=== PATIENT | female | born 1960 | race Two or more races ===

== ENCOUNTER 2024-08-13 16:05 | Emergency (ER) | payer OTHER, SELFPAY ==
[2024-08-13 16:13] VITALS: BP 120/87; PULSE 105; RESP 16; TEMP 36.8; O2SAT 96; BMI 32.9
--- NOTE | 2024-08-13 16:36 | EDNOTE_ITS ---
Upper Extremity Injury RME/HPI General Chief Complaint: Extremity Injury, Upper Stated Complaint: INJURY TO LEFT SHOULDER YEST. SENT FOR CT Time Seen by Provider: 08/13/24 16:17 Arrival date/time: 08/13/24 16:05 RME / HPI RME / HPI narrative: 63-year-old female patient came in for evaluation regarding left shoulder pain. Patient was in the shower accidentally lost balance and hit her shoulder on the wall. Patient is now complaining of pain to the left shoulder worse with range of motion of the shoulder. Went to PCP, x-ray was done, and was interpreted for possible CT scan to rule out fracture of the shoulder head. Related Data Previous Rx's ?Medication ?Instructions ?Recorded oxycodone 5 mg/5 mL oral solution 5 mg (5 mL) PO Q6HR PRN pain #100 06/18/18 mL apixaban 2.5 mg tablet (Eliquis) 2.5 mg PO BID #28 tabs 06/20/18 Allergies Allergy/AdvReac Type Severity Reaction Status Date / Time No Known Allergies Allergy Verified 08/13/24 16:08 Review of Systems Review of Systems Narrative Review of Systems: Review of system reviewed and within normal limits except mentioned in HPI ED Exam Narrative Physical exam: VITAL SIGNS: Reviewed. GENERAL APPEARANCE: Alert and interactive, follows commands, no acute distress, HEAD AND FACE: Non-traumatic. ENT: PERRL, pink conjunctivitis, eyelid no trauma, Mucous membrane moist. NECK: Supple, nontender, no nuchal rigidity. CHEST: No tenderness, no crepitus, no paradoxical movement, no retractions. RECTAL: Deferred. GENITAL: Deferred. NEUROLOGICAL: Gross motor function intact sensory function intact, Appropriate for age. MUSCULOSKELETAL: low back nontender, full range of motion. EXTREMITIES:left anterior shoulder tenderness, no bruising, limited range of motion. SKIN: Color pink, dry, no rash, no lacerations, no abrasions, no contusions. LYMPHATICS: Deferred. Course Quality Measures none Vital Signs Vital signs: Vital Signs Temperature 98.2 F 08/13/24 16:13 Pulse Rate 105 H 08/13/24 16:13 Respiratory Rate 16 08/13/24 16:13 Blood Pressure 120/87 H 08/13/24 16:13 Pulse Oximetry (%) 96 08/13/24 16:13 Oxygen Delivery Method Room Air 08/13/24 16:13 Extremity Injury MDM Narrative MDM Narrative:: 63-year-old female patient came in for evaluation regarding left shoulder pain. Patient was in the shower accidentally lost balance and hit her shoulder on the wall. Patient is now complaining of pain to the left shoulder worse with range of motion of the shoulder. Went to PCP, x-ray was done, and was interpreted for possible CT scan to rule out fracture of the shoulder head. Patient was placed on a sling. Patient was advised to closely follow-up with orthopedic surgeon, Dr. Franz, next week. Patient agrees with the plan Patient data External records reviewed:: None Clinical information provided by:: none Social determinants that could affect healthcare access:: none Patient has the following chronic illnesses:: None How is presenting disease/condition affected by chronic disease/condition?: no chronic disease Evaluation data The following diagnostics were reviewed and interpreted by me:: radiology exam(s) Lab and/or radiology exams considered but not ordered:: None Interpretation Summary: I reviewed patient's x-ray and showed nondisplaced chip fracture of the lateral aspect of the humeral head results discussed with the patient. Medications / Prescriptions Medications or Prescriptions considered but not ordered:: None none Medication administrations:: None Consultations Consultation(s) initiated? (list below): No Diagnosis Upper Extremity Injury Differential Diagnosis: dislocation of shoulder, fracture of humerus and other (Chip fracture of the humeral head) Most likely diagnosis given after review of the tests above:: Chip fracture of the humeral head Admission Indicated Admission indicated?: not indicated Admission Request Was there a request for admission?: No Disposition Plan Disposition Plan: Discharge Discharge Attestation Discharge Attestation: The patient was given an opportunity to ask questions and understood the discharge instructions. Discharge instructions specifically effects, indications for sooner follow up or return to the emergency department, and the expected course of current diagnosis. Patient condition: Stable Discharge Plan Plan Patient Disposition: HOME (Self Care) Disposition Comment: stable Prescriptions/Referrals Prescriptions/Med Rec: No Action oxycodone 5 mg/5 mL solution 5 mg PO Q6HR MDD 20 ml PRN (Reason: pain) Qty: 100 0RF apixaban [Eliquis] 2.5 mg tablet 2.5 mg PO BID Qty: 28 0RF Referrals: Ceferino Franz MD [Physician] - In 1 week Problem List Clinical Impression: Fracture of head of humerus Patient/Caregiver Discharge Instructions Education Materials: [facility] [employer] [facility] Additional Instructions: Thank you for the opportunity for serving you today. You are stable for discharged . You are advised to: Follow-up with Dr. Franz, orthopedic surgeon, please call ahead for appoi ntment next week Arm sling as needed for pain Return to ED for worsening of symptoms Increase oral fluids Take [id number] Tylenol as needed for pain Print Language: [place] Stand Alone Forms: Nery Award Info., Patient Portal Info Letter PA/SERGEANT OF OFFICERS Supervising Physician PA/S[employer]GE[employer]ERS Supervising Physician: MD Meera
== END 2024-08-13 16:55 | disposition home or self-care (01) ==
LOC: SERX 16:36
PROVIDERS: Emergency Provider Emergency Medicine; PCP Internal Medicine
DX: S42.292A Other displaced fracture of upper end of left humerus, initial encounter for closed fracture (principal); W22.8XXA Striking against or struck by other objects, initial encounter; Y93.F1 Activity, caregiving, bathing
CPT/HCPCS: 99282; A4565

== ENCOUNTER → 2024-08-13 | Outpatient (CLI) | payer OTHER, SELFPAY ==
--- NOTE | 2024-08-13 | XR_ITS ---
Examination: Humerus 2 views left Technique: Humerus, AP lateral 2 views Date and time of exam: August 13, 2024 1317 hours INDICATIONS: Right shoulder pain after falling yesterday. FINDINGS: Shaft of the humerus intact Suspicious for nondisplaced fracture humeral head to the greater tuberosity IMPRESSION: Recommend CT scan shoulder follow-up to exclude nondisplaced fracture through the humeral head
--- NOTE | 2024-08-13 | XR_ITS ---
Examination: Shoulder,left, 3 views Technique: Shoulder AP internal rotation, AP external rotation, Y view shoulder, 3 views Exam date and time :August 13, 2024 1317 hours INDICATIONS: Patient fell yesterday with injury to the shoulder, shoulder pain. FINDINGS: Suspicious for acute nondisplaced fracture humeral head to the greater tuberosity No shoulder dislocation IMPRESSION: Recommend CT examination shoulder without contrast follow-up to confirm nondisplaced fracture humeral head
== END | disposition home or self-care (01) ==
PROVIDERS: PCP Internal Medicine; Referring Provider Internal Medicine; Visit Provider Internal Medicine
DX: S49.92XA Unspecified injury of left shoulder and upper arm, initial encounter (principal); W19.XXXA Unspecified fall, initial encounter
CPT/HCPCS: 73030; 73060